=== PATIENT | male | born 1975 | race Caucasian/White ===

== ENCOUNTER 2019-12-20 12:05 | Emergency (ER) | payer BC ==
[~2019-12-20] VITALS: Ht 170.2 cm; Wt 86.2 kg
[2019-12-20 12:15] VITALS: BP_SYST 138
[2019-12-20] MEDS ORDERED: ceFAZolin SODIUM 1 GM VIAL IM ONE (13:15)
[2019-12-20 13:35] VITALS: BP_SYST 138
== END 2019-12-20 13:36 | disposition home or self-care (01) ==
LOC: SED 12:05
DX: L03.115 Cellulitis of right lower limb (principal)
CPT/HCPCS: 73590; 82962; 96372; 99283; J0690